=== PATIENT | female | born 1955 | race Caucasian/White ===

== ENCOUNTER 2018-03-27 00:07 | Outpatient (CLI) | payer BC, SELFPAY ==
--- NOTE | 2018-03-27 15:06 | DI.RAD_ITS ---
SYMPTOMS/DIAGNOSIS: HYPERPARATHYROIDISM, OSTEOPENIA, Z86.39, M85.80 DEXA SCAN: Routine examination. Comparison is 04/18/12. Evaluation of the lateral spine image shows no compression fracture deformities. Evaluation of the left hip shows a total T score of -1.4 and a Z score of -0.3. This is consistent with osteopenia and an increased fracture risk. This compares with a T score of -0.9 from 2012. Evaluation of the lumbar spine shows a total T score of -1.2 and a Z score of 0.4. This is also consistent with osteopenia and an increased fracture risk. This compares with a total T score of -0.9 from 2012. Note is made of a left convex scoliosis of the lumbar spine. IMPRESSION: Osteopenia in the lumbar spine and left hip. No evidence of osteoporosis.
--- NOTE | 2018-03-27 15:28 | DI.MAMMO_ITS ---
SYMPTOM/DIAGNOSIS: SCREENING, Z12.31 MAMMOGRAMS: Mammograms were interpreted according to the usual protocol including computer analysis with CAD system, tomosynthesis and C view imaging. The breast tissue is of moderate radiodensity. There is no evidence of a dominant mass. There are no suspicious calcifications and there has been no significant interval change when compared with prior images. SUMMARY: No evidence of malignancy, category 1. Yearly screening mammography is recommended. Breast density, category B. SA ASSESSMENT OF FINDINGS: Negative. Category 1. Patient will receive a letter notifying them of these results. BI-RADS category B. There are scattered areas of fibroglandular density.
== END 2018-03-27 00:27 ==
PROVIDERS: PCP Family Medicine; Visit Provider Physician Assistant Medical
DX: Z12.31 Encounter for screening mammogram for malignant neoplasm of breast (principal); E21.3 Hyperparathyroidism, unspecified; M85.80 Other specified disorders of bone density and structure, unspecified site
CPT/HCPCS: 77063; 77067; 77080

== ENCOUNTER 2018-03-29 15:33 | PSDC | payer BC, SELFPAY | END 2018-03-29 15:53 | PROVIDERS: PCP Family Medicine; Visit Provider Surgery | DX: Z12.11 Encounter for screening for malignant neoplasm of colon (principal); Z80.0 Family history of malignant neoplasm of digestive organs; Y66 Nonadministration of surgical and medical care ==